=== PATIENT | female | born 1945 | race Caucasian/White ===

== ENCOUNTER 2017-03-14 15:45 | Emergency (ER) | payer OTHER ==
[~2017-03-14] VITALS: Ht 149.9 cm; Wt 38.6 kg
[~2017-03-14 15:45] MED LIST: ADVAIR 250/501 DISK IH; ALBUTEROL SULF8.5 GM IH; ANORO ELLIPTA1 EACH IH; ASPIR-LOW81 MG PO; AZITHROMYCIN250 MG PO; BENADRYL25 MG PO; BREO ELLIPTA I1 EACH IH; CALCIUM 500 +1 EAC5 PO; CENTRUM SILVER1 EAC3 PO; CLOPIDOGREL75 MG PO; COUMADIN2 MG PO; CYANOCOBAL1000 MCG/2 IM; FLONASE16 G1 BOTH NARES; FUROSEMIDE20 MG PO; IMDUR30 MG PO; IMDUR60 MG PO; INCRUSE ELLI62.5 MCG IH; LASIX20 MG PO; LEVAQUIN500 MG PO; LOPRESSOR25 MG PO; LOTENSIN20 MG PO; MARINOL2.5 M1 PO; NITROSTAT0.4 MG SL; PLAVIX75 MG PO; PREDNISONE10 MG PO; PROAIR HFA8.5 GM IH; RANEXA500 MG PO; SYNTHROID75 MCG PO; TYLENOL PM1 CAPLET PO; VALIUM5 MG PO; VENTOLIN HFA18 GM IH; VITAMIN D31000 UNIT PO; ZOCOR40 MG PO; ZOLOFT25 MG PO
[2017-03-14 17:12] LABS: BASOPHIL COUNT 0.1 K/uL (0-0.1); EOSINOPHIL (%) 3.4 % (0-5); EOSINOPHIL COUNT 0.2 K/uL (0-0.3); HEMATOCRIT 39.6 % (36.0-46.0); IMMATURE GRANULOCYTE (%) 0.3 % (0.0-0.7); INSTRUMENT ABS NEUTROPHIL CT 3.4 K/uL; LYMPHOCYTE COUNT 2.6 K/uL (1.0-2.8); MCH 31.1 PG (29.0-34.0); MCHC 32.6 G/DL (30.0-36.0); MCV 95.4 FL (83-99); MEAN PLAT.VOLUME 8.8 uM^3 (9.5-12.4); MONOCYTE (%) 9.5 % (3-12); MONOCYTE COUNT 0.7 K/uL (0-0.8); NEUTROPHIL (%) 48.7 % (45-76); NEUTROPHIL COUNT 3.4 K/uL (1.8-6.4); PLATELET COUNT 242 K/uL (156-360); RBC DIS.WIDTH-CV 13.2 % (11.8-14.6); RBC DIS.WIDTH-SD 46.5 % (39-53); RED BLOOD COUNT 4.15 M/uL (3.80-5.20)
[2017-03-14 17:32] LABS: ANION GAP 8 MEQ/L (2-14); CHLORIDE 109 MEQ/L (99-109); POTASSIUM 3.7 MEQ/L (3.7-5.4); SAMPLE HEMOLYSIS CHECK 0; SAMPLE ICTERIC CHECK 0; SAMPLE LIPEMIA CHECK 0; SODIUM 144 MEQ/L (136-147); TOTAL BILIRUBIN 0.5 MG/DL (0.0-1.0)
[2017-03-14 17:38] LABS: ALKALINE PHOSPHATASE 56 IU/L (3-129); GFR ESTIMATE (CALCULATED) > 59 mL/min/; GLUCOSE 82 mg/dL (70-99); HDL CHOLESTEROL 48 MG/DL (Desirable>=50); LDL CHOLESTEROL 83 mg/dL (Desirable<100); NON-HDL CHOLESTEROL 103 mg/dL (Desirable<160); TOTAL CHOLESTEROL 151 mg/dL (Desirable<200); TRIGLYCERIDES 99 MG/DL (Normal: <150); UREA NITROGEN (BUN) 14 mg/dL (9-23)
[2017-03-14 17:40] LABS: Estimated Average Glucose 117 mg/dL (70-123); HEMOGLOBIN A1c (GLYCOHEMOGLOB) 5.7 % HGB (Below 5.7)
[2017-03-14 17:41] LABS: TROP-I INTERPRETATION NEGATIVE; TROPONIN-I < 0.01 ng/mL (0.0-0.30)
[2017-03-14 19:05] VITALS: BP 132/66
== END 2017-03-14 19:06 | disposition left against medical advice (07) ==
LOC: EME 15:45
PROVIDERS: Emergency Medicine
DX: R20.2 Paresthesia of skin (principal); Z86.73 Personal history of transient ischemic attack (TIA), and cerebral infarction without residual deficits; I11.0 Hypertensive heart disease with heart failure; I50.9 Heart failure, unspecified; I25.10 Atherosclerotic heart disease of native coronary artery without angina pectoris; I25.2 Old myocardial infarction; Z95.1 Presence of aortocoronary bypass graft; J44.9 Chronic obstructive pulmonary disease, unspecified; K21.9 Gastro-esophageal reflux disease without esophagitis; I42.9 Cardiomyopathy, unspecified; F32.9 Major depressive disorder, single episode, unspecified; F41.9 Anxiety disorder, unspecified; F03.90 Unspecified dementia, unspecified severity, without behavioral disturbance, psychotic disturbance, mood disturbance, and anxiety; Z79.82 Long term (current) use of aspirin; Z79.02 Long term (current) use of antithrombotics/antiplatelets; F17.200 Nicotine dependence, unspecified, uncomplicated
CPT/HCPCS: 70450; 71020; 80053; 80061; 81003; 83036; 84484; 85025; 99281; 99284

== ENCOUNTER 2017-07-07 11:30 | Inpatient (IN) | payer OTHER ==
[2017-07-07] VITALS (8 sets, daily range): BP systolic 98–156; BP diastolic 53–92
[~2017-07-07] VITALS: Ht 149.9 cm; Wt 36.5 kg
[~2017-07-07 11:30] MED LIST changes: +ATORVASTATIN CA80 MG PO; -ZOCOR40 MG PO
[2017-07-07 11:58] LABS: BASOPHIL (%) 0.8 % (0-1); BASOPHIL COUNT 0.1 K/uL (0-0.1); EOSINOPHIL (%) 1.6 % (0-5); EOSINOPHIL COUNT 0.2 K/uL (0-0.3); HEMATOCRIT 41.2 % (36.0-46.0); IMMATURE GRANULOCYTE (%) 0.7 % (0.0-0.7); LYMPHOCYTE (%) 51.1 % (15-42); LYMPHOCYTE COUNT 5.9 K/uL (1.0-2.8); MCH 31.2 PG (29.0-34.0); MCHC 31.6 G/DL (30.0-36.0); MCV 98.8 FL (83-99); MONOCYTE (%) 4.8 % (3-12); MONOCYTE COUNT 0.6 K/uL (0-0.8); NEUTROPHIL COUNT 4.7 K/uL (1.8-6.4); PLATELET COUNT 267 K/uL (156-360); RBC DIS.WIDTH-CV 13.6 % (11.8-14.6); RBC DIS.WIDTH-SD 49.7 % (39-53); RED BLOOD COUNT 4.17 M/uL (3.80-5.20); WHITE BLOOD COUNT 11.6 K/uL (4.1-10.2)
[2017-07-07 12:07] LABS: CHLORIDE 104 mEq/L (99-109); POTASSIUM 3.2 mEq/L (3.7-5.4); SODIUM 144 mEq/L (136-147)
[2017-07-07 12:09] LABS: GLUCOSE 317 mg/dL (70-99); TOTAL PROTEIN 6.1 g/dL (6.4-8.3)
[2017-07-07 12:09] LABS: BASE EXCESS -2.4 mEq/L (-3 to +3); BICARBONATE 24.2 mEq/L (22-26); CARBOXY HGB 2.7 % (0-5); METHEMOGLOBIN 1.1 % (0-1.5); PCO2 48 mm Hg (35-45); PO2 248 mm Hg (80-100); SITE RR; pH 7.31 (7.35-7.45)
[2017-07-07 12:10] LABS: DEVICE VENT; FI02 75 %; MECHANICAL RATE 16 resp/min; MODE AC; PEEP 7 CM/H20; TIDAL VOLUME 400 ML; TOTAL RESP RATE 16 resp/min
[2017-07-07 12:11] LABS: TOTAL BILIRUBIN 0.8 mg/dL (0.0-1.0)
[2017-07-07 12:13] LABS: ALKALINE PHOSPHATASE 156 IU/L (3-129); GFR ESTIMATE (CALCULATED) 58 mL/min/
[2017-07-07 12:14] LABS: UREA NITROGEN (BUN) 12 mg/dL (9-23)
[2017-07-07 12:15] LABS: AST (GOT) 45 IU/L (2-34)
[2017-07-07 12:16] LABS: ALT (GPT) 47 IU/L (3-49)
[2017-07-07 12:20] LABS: TROP-I INTERPRETATION NEGATIVE; TROPONIN-I 0.02 ng/mL (0.0-0.30)
[2017-07-07 12:59] LABS: CREATINE KINASE 73 IU/L (1-294)
[2017-07-07 13:15] LABS: APPEARANCE SL.HAZY ((CLEAR)); BILIRUBIN NEGATIVE; BLOOD NEGATIVE; COLOR YELLOW ((YELLOW)); GLUCOSE (STRIP) 50; KETONES NEGATIVE; LEUKOCYTES TRACE; NITRITE NEGATIVE; PROTEIN (STRIP) 30; SPECIFIC GRAVITY 1.018 (1.000-1.030); UROBILINOGEN 0.2 MG/DL (0.2-1.0)
[2017-07-07 13:21] LABS: BACTERIA 3+ /HPF; CALCIUM OXALATE CRYSTALS 1+ /HPF; EPITHELIAL CELLS RARE /HPF; HYALINE CASTS 0-5 /LPF; MUCUS 4+ /LPF; UCUL ADDED? YES
[2017-07-07 14:58] LABS: TRIGLYCERIDES 112 MG/DL (Normal: <150)
[2017-07-08] VITALS (25 sets, daily range): BP systolic 83–156; BP diastolic 46–115
[2017-07-08 05:25] LABS: BASE EXCESS 1.6 mEq/L (-3 to +3); BICARBONATE 25.8 mEq/L (22-26); CARBOXY HGB 1.6 % (0-5); COMMENTS - BLOOD GASES C+; DEVICE VENT; FI02 30 %; MECHANICAL RATE 16 resp/min; MODE A/C; PCO2 38 mm Hg (35-45); PEEP 5 CM/H20; PO2 99 mm Hg (80-100); SITE RR; TIDAL VOLUME 400 ML; TOTAL RESP RATE 16 resp/min; pH 7.44 (7.35-7.45)
[2017-07-08 05:46] LABS: BASOPHIL (%) 0.1 % (0-1); EOSINOPHIL (%) 0 % (0-5); IMMATURE GRANULOCYTE (%) 0.3 % (0.0-0.7); LYMPHOCYTE (%) 17.5 % (15-42); LYMPHOCYTE COUNT 1.2 K/uL (1.0-2.8); MCH 30.4 PG (29.0-34.0); MCHC 32.1 G/DL (30.0-36.0); MONOCYTE (%) 6.8 % (3-12); MONOCYTE COUNT 0.5 K/uL (0-0.8); NEUTROPHIL (%) 75.3 % (45-76); NEUTROPHIL COUNT 5.2 K/uL (1.8-6.4); PLATELET COUNT 212 K/uL (156-360); RBC DIS.WIDTH-CV 13.6 % (11.8-14.6); RBC DIS.WIDTH-SD 46.6 % (39-53); RED BLOOD COUNT 3.49 M/uL (3.80-5.20); WHITE BLOOD COUNT 6.9 K/uL (4.1-10.2)
[2017-07-08 05:49] LABS: HEMOGLOBIN 10.6 G/DL (11.9-15.5); MCV 94.6 FL (83-99)
[2017-07-08 05:52] LABS: CHLORIDE 108 MEQ/L (99-109); CREATININE 0.6 MG/DL (0.6-1.3); GFR ESTIMATE (CALCULATED) > 59 mL/min/; GLUCOSE 119 mg/dL (70-99); MAGNESIUM 1.6 mg/dl (1.3-2.7); PHOSPHORUS 4.1 mg/dL (2.5-4.9); POTASSIUM 2.9 MEQ/L (3.7-5.4); SODIUM 146 MEQ/L (136-147); UREA NITROGEN (BUN) 13 mg/dL (9-23)
[2017-07-08 10:17] LABS: HEMOGLOBIN A1c (GLYCOHEMOGLOB) 5.5 % (Below 5.7)
[2017-07-08 10:35] LABS: BASE EXCESS 1.6 mEq/L (-3 to +3); BICARBONATE 25.8 mEq/L (22-26); CARBOXY HGB 1.6 % (0-5); COMMENTS - BLOOD GASES A+C+; DEVICE VENT; FI02 30 %; METHEMOGLOBIN 1.6 % (0-1.5); MODE SPONT PS; PCO2 38 mm Hg (35-45); PEEP 5 CM/H20; PO2 83 mm Hg (80-100); SITE LR; TOTAL RESP RATE 19 resp/min; pH 7.44 (7.35-7.45)
[2017-07-08 20:10] LABS: CHLORIDE 109 MEQ/L (99-109); CREATININE 0.8 MG/DL (0.6-1.3); GFR ESTIMATE (CALCULATED) > 59 mL/min/; GLUCOSE 116 mg/dL (70-99); SODIUM 142 MEQ/L (136-147); UREA NITROGEN (BUN) 16 mg/dL (9-23)
[2017-07-08 20:11] LABS: POTASSIUM 4.2 MEQ/L (3.7-5.4)
[2017-07-09] VITALS (24 sets, daily range): BP systolic 100–138; BP diastolic 53–91
[2017-07-09 05:24] LABS: BASOPHIL (%) 0.5 % (0-1); EOSINOPHIL (%) 0.6 % (0-5); EOSINOPHIL COUNT 0.1 K/uL (0-0.3); HEMATOCRIT 29.9 % (36.0-46.0); HEMOGLOBIN 9.6 G/DL (11.9-15.5); IMMATURE GRANULOCYTE (%) 0.4 % (0.0-0.7); LYMPHOCYTE COUNT 2.8 K/uL (1.0-2.8); MCH 30.5 PG (29.0-34.0); MCHC 32.1 G/DL (30.0-36.0); MCV 94.9 FL (83-99); MONOCYTE (%) 9.2 % (3-12); MONOCYTE COUNT 0.8 K/uL (0-0.8); NEUTROPHIL (%) 56.3 % (45-76); NEUTROPHIL COUNT 4.7 K/uL (1.8-6.4); PLATELET COUNT 211 K/uL (156-360); RBC DIS.WIDTH-SD 48.2 % (39-53); RED BLOOD COUNT 3.15 M/uL (3.80-5.20); WHITE BLOOD COUNT 8.4 K/uL (4.1-10.2)
[2017-07-09 06:04] LABS: CHLORIDE 109 MEQ/L (99-109); CREATININE 0.7 MG/DL (0.6-1.3); GFR ESTIMATE (CALCULATED) > 59 mL/min/; GLUCOSE 92 mg/dL (70-99); POTASSIUM 3.5 MEQ/L (3.7-5.4); SODIUM 143 MEQ/L (136-147); UREA NITROGEN (BUN) 17 mg/dL (9-23)
[2017-07-09 09:50] LABS: BASE EXCESS -0.5 mEq/L (-3 to +3); BICARBONATE 24.2 mEq/L (22-26); CARBOXY HGB 1.3 % (0-5); METHEMOGLOBIN 1.5 % (0-1.5); PCO2 39 mm Hg (35-45)
[2017-07-09 09:52] LABS: COMMENTS - BLOOD GASES +c +A; DEVICE PB840; PO2 101 mm Hg (80-100); SITE RR
[2017-07-09 09:53] LABS: FI02 30 %; MODE SPONT; PEEP 5 CM/H20; PRES. SUPPORT 10 CM/H2O; TOTAL RESP RATE 12 resp/min
[2017-07-09 10:53] LABS: BASE EXCESS 0.3 mEq/L (-3 to +3); BICARBONATE 25.4 mEq/L (22-26); COMMENTS - BLOOD GASES +A +C; DEVICE 840; FI02 30 %; METHEMOGLOBIN 1.6 % (0-1.5); PCO2 42 mm Hg (35-45); PO2 94 mm Hg (80-100); SITE RR; pH 7.39 (7.35-7.45)
[2017-07-09 10:54] LABS: CONTINUOUS POS AIRWAY PRESSURE 5 cm H2O; MODE TUBE COMP; TOTAL RESP RATE 23 resp/min
[2017-07-10] VITALS (19 sets, daily range): BP systolic 95–139; BP diastolic 51–89
[2017-07-10 09:43] LABS: BASOPHIL (%) 0.7 % (0-1); BASOPHIL COUNT 0.1 K/uL (0-0.1); EOSINOPHIL (%) 1.5 % (0-5); EOSINOPHIL COUNT 0.1 K/uL (0-0.3); HEMATOCRIT 35.6 % (36.0-46.0); IMMATURE GRANULOCYTE (%) 0.2 % (0.0-0.7); LYMPHOCYTE (%) 28.2 % (15-42); LYMPHOCYTE COUNT 2.3 K/uL (1.0-2.8); MCH 30.3 PG (29.0-34.0); MCHC 30.9 G/DL (30.0-36.0); MCV 98.1 FL (83-99); MONOCYTE (%) 9.6 % (3-12); MONOCYTE COUNT 0.8 K/uL (0-0.8); NEUTROPHIL (%) 59.8 % (45-76); NEUTROPHIL COUNT 4.9 K/uL (1.8-6.4); PLATELET COUNT 218 K/uL (156-360); RBC DIS.WIDTH-SD 51.2 % (39-53); RED BLOOD COUNT 3.63 M/uL (3.80-5.20); WHITE BLOOD COUNT 8.3 K/uL (4.1-10.2)
[2017-07-10 10:12] LABS: CHLORIDE 109 MEQ/L (99-109); CREATININE 0.5 MG/DL (0.6-1.3); GFR ESTIMATE (CALCULATED) > 59 mL/min/; GLUCOSE 87 mg/dL (70-99); POTASSIUM 3.5 MEQ/L (3.7-5.4); SODIUM 145 MEQ/L (136-147); UREA NITROGEN (BUN) 16 mg/dL (9-23)
[2017-07-10 13:08] LABS: THYROTROPIN (TSH) 0.14 MIU/L (0.4-5.5)
[2017-07-11 04:55] VITALS: BP 122/57
[2017-07-11 06:48] LABS: CHLORIDE 110 MEQ/L (99-109); CREATININE 0.5 MG/DL (0.6-1.3); GFR ESTIMATE (CALCULATED) > 59 mL/min/; GLUCOSE 84 mg/dL (70-99); POTASSIUM 3.2 MEQ/L (3.7-5.4); SODIUM 147 MEQ/L (136-147); UREA NITROGEN (BUN) 16 mg/dL (9-23)
[2017-07-11 06:57] LABS: MAGNESIUM 2.2 mg/dl (1.3-2.7)
[2017-07-11 09:18] VITALS: BP 150/66
[2017-07-11 10:34] LABS: TROP-I INTERPRETATION NEGATIVE; TROPONIN-I 0.22 ng/mL (0.0-0.30)
[2017-07-11 13:11] VITALS: BP 125/72
[2017-07-11 14:54] VITALS: BP 143/65
[2017-07-11 19:54] LABS: INTER. NORMALIZED RATIO 1.1
[2017-07-11 20:02] VITALS: BP 120/57
[2017-07-12] VITALS (22 sets, daily range): BP systolic 93–178; BP diastolic 47–94
[2017-07-12 02:24] LABS: BASE EXCESS -7.4 mEq/L (-3 to +3); BICARBONATE 23.7 mEq/L (22-26); CARBOXY HGB 1.9 % (0-5); COMMENTS - BLOOD GASES C+; METHEMOGLOBIN 1.4 % (0-1.5); PCO2 80 mm Hg (35-45); PO2 84 mm Hg (80-100); SITE RR; pH 7.08 (7.35-7.45)
[2017-07-12 02:25] LABS: DEVICE HFNC; O2 FLOW 12 L/MIN; TOTAL RESP RATE 32 resp/min
[2017-07-12 02:59] LABS: HEMATOCRIT 32.1 % (36.0-46.0); HEMOGLOBIN 10.1 G/DL (11.9-15.5); MCH 31.5 PG (29.0-34.0); MCHC 31.5 G/DL (30.0-36.0); PLATELET COUNT 265 K/uL (156-360); RBC DIS.WIDTH-CV 13.7 % (11.8-14.6); RBC DIS.WIDTH-SD 50.2 % (39-53); RED BLOOD COUNT 3.21 M/uL (3.80-5.20); WHITE BLOOD COUNT 7.9 K/uL (4.1-10.2)
[2017-07-12 04:00] LABS: CHLORIDE 109 mEq/L (99-109)
[2017-07-12 04:01] LABS: POTASSIUM 4.6 mEq/L (3.7-5.4); SODIUM 139 mEq/L (136-147)
[2017-07-12 04:03] LABS: CREATININE 0.9 mg/dL (0.6-1.3); GFR ESTIMATE (CALCULATED) > 59 mL/min/; UREA NITROGEN (BUN) 20 mg/dL (9-23)
[2017-07-12 04:04] LABS: BASE EXCESS -3.4 mEq/L (-3 to +3); BICARBONATE 25.6 mEq/L (22-26); CARBOXY HGB 1.9 % (0-5); METHEMOGLOBIN 1.6 % (0-1.5); PCO2 64 mm Hg (35-45); PO2 360 mm Hg (80-100)
[2017-07-12 04:05] LABS: COMMENTS - BLOOD GASES C+A+; DEVICE VENTILATOR; FI02 100 %; MECHANICAL RATE 18 resp/min; MODE AC; PEEP 5 CM/H20; SITE RR; TIDAL VOLUME 300 ML; TOTAL RESP RATE 19 resp/min; pH 7.21 (7.35-7.45)
[2017-07-12 04:10] LABS: GLUCOSE 421 mg/dL (70-99)
[2017-07-13] VITALS (20 sets, daily range): BP systolic 102–139; BP diastolic 46–83
[2017-07-13 05:34] LABS: BASOPHIL (%) 0.7 % (0-1); BASOPHIL COUNT 0.1 K/uL (0-0.1); EOSINOPHIL (%) 2.5 % (0-5); EOSINOPHIL COUNT 0.2 K/uL (0-0.3); HEMOGLOBIN 10.3 G/DL (11.9-15.5); IMMATURE GRANULOCYTE (%) 0.5 % (0.0-0.7); LYMPHOCYTE (%) 34.6 % (15-42); LYMPHOCYTE COUNT 2.8 K/uL (1.0-2.8); MCH 31.4 PG (29.0-34.0); MCHC 32.2 G/DL (30.0-36.0); MCV 97.6 FL (83-99); MONOCYTE (%) 10.4 % (3-12); MONOCYTE COUNT 0.9 K/uL (0-0.8); NEUTROPHIL (%) 51.3 % (45-76); NEUTROPHIL COUNT 4.2 K/uL (1.8-6.4); PLATELET COUNT 228 K/uL (156-360); RBC DIS.WIDTH-CV 13.7 % (11.8-14.6); RBC DIS.WIDTH-SD 48.5 % (39-53); RED BLOOD COUNT 3.28 M/uL (3.80-5.20); WHITE BLOOD COUNT 8.2 K/uL (4.1-10.2)
[2017-07-13 05:38] LABS: INTER. NORMALIZED RATIO 1.7
[2017-07-13 06:10] LABS: ALBUMIN 3.3 G/DL (3.2-4.8); ALKALINE PHOSPHATASE 101 IU/L (3-129); ALT (GPT) 53 IU/L (3-49); AST (GOT) 28 IU/L (2-34); CHLORIDE 105 MEQ/L (99-109); CREATININE 0.7 MG/DL (0.6-1.3); GFR ESTIMATE (CALCULATED) > 59 mL/min/; SODIUM 142 MEQ/L (136-147); TOTAL BILIRUBIN 0.6 MG/DL (0.0-1.0); TOTAL PROTEIN 5.3 G/DL (6.4-8.3); UREA NITROGEN (BUN) 16 mg/dL (9-23)
[2017-07-13 06:13] LABS: GLUCOSE 94 mg/dL (70-99); POTASSIUM 3.5 MEQ/L (3.7-5.4)
[2017-07-14] VITALS (7 sets, daily range): BP systolic 98–133; BP diastolic 49–76
[2017-07-14 05:28] LABS: INTER. NORMALIZED RATIO 1.8
[2017-07-14 06:03] LABS: CHLORIDE 107 MEQ/L (99-109); CREATININE 0.7 MG/DL (0.6-1.3); GFR ESTIMATE (CALCULATED) > 59 mL/min/; GLUCOSE 114 mg/dL (70-99); SODIUM 142 MEQ/L (136-147); UREA NITROGEN (BUN) 19 mg/dL (9-23)
[2017-07-14 06:05] LABS: POTASSIUM 4.5 MEQ/L (3.7-5.4)
[2017-07-15 03:22] VITALS: BP 103/51
[2017-07-15 06:11] LABS: INTER. NORMALIZED RATIO 1.5
[2017-07-15 06:30] LABS: CHLORIDE 105 MEQ/L (99-109); SODIUM 141 MEQ/L (136-147)
[2017-07-15 06:36] LABS: CREATININE 0.8 MG/DL (0.6-1.3); GFR ESTIMATE (CALCULATED) > 59 mL/min/; GLUCOSE 107 mg/dL (70-99); UREA NITROGEN (BUN) 20 mg/dL (9-23)
[2017-07-15 07:16] VITALS: BP 101/52
[2017-07-15 11:12] VITALS: BP 100/55
[2017-07-15 15:02] VITALS: BP 105/50
[2017-07-15] MEDS ORDERED: COUMADIN1 MG PO (15:05)
[2017-07-15] MEDS ORDERED: FUROSEMIDE20 MG PO (15:07)
[2017-07-15] MEDS ORDERED: CARDIZEM CD,CA180 MG PO (15:21)
[2017-07-15] MEDS ORDERED: AMOXICILLIN500 M1 PO (15:43)
[2017-07-15] MEDS ORDERED: COUMADIN2 MG PO (16:21)
[2017-07-15] MEDS ORDERED: AMOXICILLIN500 MG PO (16:21)
== END 2017-07-15 17:18 | disposition home or self-care (01) | DRG 291 ==
LOC: EME 11:30 → 4WEST 13:23 → EDOF 13:23 → 4EAST 13:23 → ENRESERV 13:26 → 4WEST 14:44 → ENRESERV 07-10 17:45 → 4EAST 07-10 19:44 → ENRESERV 07-12 02:45 → 4WEST 07-12 02:47 → ENRESERV 07-13 21:43 → CANRESERV 07-13 21:43 → ENRESERV 07-13 23:20 → 4EAST 07-14 00:12
PROVIDERS: Emergency Medicine; Hospitalist; Internal Medicine Cardiovascular Disease; Internal Medicine Critical Care Medicine; Obstetrics & Gynecology; Physician Assistant; Surgery
PROC: 0BH17EZ Insertion of Endotracheal Airway into Trachea, Via Natural or Artificial Opening (ICD-10-PCS; principal; 2017-07-07)
PROC: 5A1945Z Respiratory Ventilation, 24-96 Consecutive Hours (ICD-10-PCS; principal; 2017-07-07)
DX: I50.43 Acute on chronic combined systolic (congestive) and diastolic (congestive) heart failure (principal); J18.9 Pneumonia, unspecified organism; J96.21 Acute and chronic respiratory failure with hypoxia; N39.0 Urinary tract infection, site not specified; J44.0 Chronic obstructive pulmonary disease with (acute) lower respiratory infection; I16.1 Hypertensive emergency; J44.1 Chronic obstructive pulmonary disease with (acute) exacerbation; J96.22 Acute and chronic respiratory failure with hypercapnia; I25.10 Atherosclerotic heart disease of native coronary artery without angina pectoris; I11.0 Hypertensive heart disease with heart failure; I27.20 Pulmonary hypertension, unspecified; E87.2 Acidosis; R64 Cachexia; E87.6 Hypokalemia; G35 Multiple sclerosis; G47.33 Obstructive sleep apnea (adult) (pediatric); I48.2 Chronic atrial fibrillation; E83.51 Hypocalcemia; K21.9 Gastro-esophageal reflux disease without esophagitis; F17.210 Nicotine dependence, cigarettes, uncomplicated; I25.5 Ischemic cardiomyopathy; E03.9 Hypothyroidism, unspecified; D63.8 Anemia in other chronic diseases classified elsewhere; F03.90 Unspecified dementia, unspecified severity, without behavioral disturbance, psychotic disturbance, mood disturbance, and anxiety; B95.2 Enterococcus as the cause of diseases classified elsewhere; Z95.5 Presence of coronary angioplasty implant and graft; Z95.1 Presence of aortocoronary bypass graft; Z79.01 Long term (current) use of anticoagulants; Z86.73 Personal history of transient ischemic attack (TIA), and cerebral infarction without residual deficits; Z68.1 Body mass index [BMI] 19.9 or less, adult; F41.8 Other specified anxiety disorders; R73.9 Hyperglycemia, unspecified; E78.5 Hyperlipidemia, unspecified; I73.9 Peripheral vascular disease, unspecified; I25.2 Old myocardial infarction
CPT/HCPCS: 36600; 70450; 71045; 80048; 80048 91; 80053; 81003; 82330; 82550; 82803; 82948; 83036; 83605; 83735; 83880; 84100; 84443; 84478; 84484; 85025; 85027; 85610; 87040; 87070; 87077; 87086; 87086 GA; 87186; 87205; 87502; 87641; 92610 GN; 93005; 93306; 94002; 94003; 94640; 94640 76; 94760; 94799; 97530 GO; 99202; 99281; 99285; C9113; J0290; J0610; J0696; J1644; J1940; J2405; J2543; J2704; J2920; J3010; J3370; J3475; J3480; J7030; J7050; J7512; S0028